=== PATIENT | male | born 1945 | race Caucasian/White ===

== ENCOUNTER 2019-02-16 21:00 | Emergency (ER) | payer OTHER ==
[~2019-02-16] VITALS: Ht 177.8 cm; Wt 81.6 kg
[2019-02-16] MEDS ORDERED: SIMVASTATIN5 MG (21:31)
[2019-02-16] MEDS ORDERED: LISINOPRIL2.5 MG (21:31)
[2019-02-17] MEDS ORDERED: LEVSIN/SL0.125 MG SL (03:29)
== END 2019-02-17 03:56 | disposition home or self-care (01) ==
LOC: ER 21:00
DX: K80.20 Calculus of gallbladder without cholecystitis without obstruction (principal); R10.11 Right upper quadrant pain

== ENCOUNTER 2024-10-14 19:15 | Emergency (ER) | payer OTHER ==
[~2024-10-14] VITALS: Ht 175.3 cm; Wt 68.0 kg
[~2024-10-14 19:15] MED LIST: LEVSIN/SL0.125 MG SL; LISINOPRIL2.5 MG; SIMVASTATIN5 MG
[2024-10-14] MEDS ORDERED: DONEPEZIL HCL10 MG PO (19:34)
[2024-10-14] MEDS ORDERED: MEMANTINE HCL10 MG PO (19:34)
[2024-10-14] MEDS ORDERED: QUETIAPINE FUM100 MG PO (19:34)
[2024-10-14] MEDS ORDERED: BUSPIRONE HCL5 MG PO (19:34)
[2024-10-14] MEDS ORDERED: LISINOPRIL40 MG PO (19:34)
[2024-10-14] MEDS ORDERED: ATORVASTATIN CA10 MG PO (19:34)
[2024-10-14] MEDS ORDERED: METFORMIN HCL500 M4 PO (19:34)
[2024-10-14 20:09] LABS: HEMATOCRIT 39.1 % (39.0-48.0); HEMOGLOBIN 13.1 g/dL (13-16.00); MEAN CELL VOLUME 90.8 fL (80.0-100.00); MEAN CORPUSCULAR HEMOGLOBIN 30.5 pg (27.00-32.0); MEAN CORPUSCULAR HGB CONC 33.6 g/dl (32.0-36.0); PLATELET COUNT 188 K/uL (150-450); RED BLOOD COUNT 4.31 M/uL (4.00-6.00); RED CELL DISTRIBUTION WIDTH 13.6 % (11.5-14.5)
[2024-10-14 20:27] LABS: INR 1.05; PROTHROMBIN TIME 11.4 SECONDS (9.0-11.5)
[2024-10-14 20:32] LABS: ALBUMIN 2.8 gm/dL (3.4-5.0); BILIRUBIN TOTAL 0.85 mg/dL (0.3-1.2); CALCIUM 8.4 mg/dL (8.5-10.1); CREATININE SERUM 1.05 mg/dL (0.70-1.30); GFR 68.31; GLOBULINA 3.4 G/DL (2.4-3.5); POTASSIUM 4.24 mEq/L (3.5-5.1); TOTAL PROTEIN 6.2 gm/dL (6.4-8.2)
[2024-10-14 20:51] LABS: PH,URINE 5.5 (5.0-8.0); URINE APPEARANCE Clear; URINE BILIRRUBIN Negative (NEGATIVE); URINE BLOOD Negative; URINE COLOR Dark Yellow; URINE GLUCOSE Negative (NEGATIVE); URINE KETONE Trace (NEGATIVE); URINE LEUKOCYTE Negative; URINE NITRATE Negative; URINE PROTEIN Trace (NEGATIVE)
[2024-10-14 20:55] LABS: URINE BACTERIA 26.9 uL (0.0-1933); URINE EPITHELIAL CELLS 1.5 uL (0.0-38.8); URINE RBC 6.1 uL (0.0-20.8)
[2024-10-14 21:35] LABS: URINE CAST 0.88 uL (0.0-1.40)
[2024-10-14 21:38] LABS: URINE YEAST FEW /hpf
== END 2024-10-15 01:52 | disposition home or self-care (01) ==
LOC: ER 19:15
PROVIDERS: General Practice
DX: R55 Syncope and collapse (principal); I95.89 Other hypotension; G30.8 Other Alzheimer's disease; F02.80 Dementia in other diseases classified elsewhere, unspecified severity, without behavioral disturbance, psychotic disturbance, mood disturbance, and anxiety; I10 Essential (primary) hypertension; E11.9 Type 2 diabetes mellitus without complications; Z79.84 Long term (current) use of oral hypoglycemic drugs